=== PATIENT | female | born 1955 | race Caucasian/White ===

== ENCOUNTER → 2018-05-22 | Outpatient (CLI) | payer OTHER ==
--- NOTE | 2018-05-22 11:28 | Diagnostic Imaging Report ---
PROCEDURE:EXTREMITY ULTRASOUND COMPARISON:None. INDICATIONS:Localized Swelling, Mass and Lump Right Leg TECHNIQUE: In the area of clinical concern, in the medial upper right thigh, there is a 2.9 x 1.1 x 2.2 cm heterogeneously mildly hyperechoic well-circumscribed nodule without vascular flow. Additional incidental solid hyperechoic nodules measuring up to 9 mm and 6 mm are present lateral to the palpable nodule described above without vascular flow. CONCLUSION: Well-circumscribed mildly hyperechoic nodule measuring 2.9 cm in the area of clinical concern in the medial upper thigh. Additional incidental adjacent subcentimeter hyperechoic nodules. 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 Dictated by: GUDELIA RUDOLPH M.D. on 05/22/2018 at 11:35 Electronically approved by: GUDELIA RUDOLPH M.D. on 05/22/2018 at 11:35
== END ==
LOC: US 09:37
PROVIDERS: ATTEND Family Medicine
DX: R22.41 Localized swelling, mass and lump, right lower limb (principal)
CPT/HCPCS: 76882